=== PATIENT | male | born 1960 | race African-American/Black ===

== ENCOUNTER 2017-05-20 12:59 | Emergency (ER) | payer BC, OTHER ==
--- NOTE | 2017-05-20 13:29 | ER Document Report ---
ED Medical Screen (RME) - General Chief Complaint: Upper Abdominal Pain Stated Complaint: LEFT SIDE PAIN Time Seen by Provider: 05/20/17 13:27 Notes: Patient states for 3 days he has had left upper abdominal pain and left lower chest pain. He states certain movements cause a sharp pain to go into his chest and make it hard for him to breathe. He states he does not of any injuries. He states he had a similar pain several months ago and went to the [facility]. He states at that time they did an ultrasound and told him that he had "fluid around his kidney". He states follow-up for this finding is in the process of being arranged but he has not seen any regular doctors. He denies any problems with urination or blood in the urine. No nausea or vomiting. No problems with eating. No problems with stools. He denies any cough cold congestion. TRAVEL OUTSIDE OF THE [place] IN LAST 30 DAYS: No - Related Data Allergies/Adverse Reactions: No Known Allergies Allergy (Verified 05/20/17 13:12) Home Medications: Current Home Medications Amlodipine Besylate 10 mg PO DAILY 05/20/17 [History] Ascorbate Calcium [Vitamin C] 500 mg PO DAILY PRN 05/20/17 [History] Ferrous Sulfate 324 mg PO DAILY PRN 05/20/17 [History] Glipizide 10 mg PO DAILY 05/20/17 [History] Insulin Glargine,Hum.rec.anlog [Lantus] 23 unit SQ QHS 05/20/17 [History] Liraglutide [Victoza 2-Job] 0.5 mg SQ QHS 05/20/17 [History] Lisinopril/Hydrochlorothiazide [Lisinopril-Hctz 20-25 mg Tab] 1 each PO DAILY [History] Metformin HCl [Glucophage] 1,000 mg PO QHS 05/20/17 [History] Simvastatin 40 mg PO QHS 05/20/17 [History] Past Medical History - Social History Frequency of alcohol use: None Drug Abuse: None Renal/ Medical History: Denies: Hx Peritoneal Dialysis Physical Exam - Vital signs Vitals: Temp Pulse Resp BP Pulse Ox 98.0 F 78 24 H 144/79 H 96 05/20/17 13:05 05/20/17 13:05 05/20/17 13:05 05/20/17 13:05 05/20/17 13:05 Course - Vital Signs Vital signs: Temp Pulse Resp BP Pulse Ox 98.0 F 78 24 H 144/79 H 96 05/20/17 13:05 05/20/17 13:05 05/20/17 13:05 05/20/17 13:05 05/20/17 13:05
[2017-05-20 13:51] LABS: ABSOLUTE BASOPHILS # (AUTO) 0.1 10^3/uL (0.0-0.2); ABSOLUTE EOSINOPHILS # (AUTO) 0.2 10^3/uL (0.0-0.6); ABSOLUTE LYMPHOCYTES (AUTO) 1.4 10^3/uL (0.5-4.7); ABSOLUTE MONOCYTES (AUTO) 0.6 10^3/uL (0.1-1.4); ABSOLUTE NEUT (AUTO) 3.1 10^3/uL (1.7-8.2); BASOPHILS % (AUTO) 1.4 % (0-2); HEMATOCRIT 35.9 % (37.9-51.0); HEMOGLOBIN 11.3 g/dL (13.5-17.0); LYMPHOCYTES % (AUTO) 26.1 % (13-45); MEAN CORPUSCULAR HEMOGLOBIN 23.4 pg (27.0-33.4); MEAN CORPUSCULAR HGB CONC 31.6 g/dL (32.0-36.0); MEAN CORPUSCULAR VOLUME 74 fl (80-97); MONOCYTES % (AUTO) 11.9 % (3-13); RED BLOOD COUNT 4.85 10^6/uL (4.35-5.55); RED CELL DISTRIBUTION WIDTH 16.7 % (11.5-14.0); SEGMENTED NEUTROPHILS % (AUTO) 57.6 % (42-78); WHITE BLOOD COUNT 5.4 10^3/uL (4.0-10.5)
[2017-05-20 13:56] LABS: APPEARANCE,URINE CLEAR; BILIRUBIN,URINE NEGATIVE (NEGATIVE); GLUCOSE, URINE NEGATIVE (NEGATIVE); KETONES,URINE NEGATIVE (NEGATIVE); LEUKOCYTE ESTERASE,URINE NEGATIVE (NEGATIVE); NITRITE,URINE NEGATIVE (NEGATIVE); PROTEIN,URINE NEGATIVE (NEGATIVE); URINE SPECIFIC GRAVITY 1.014; UROBILINOGEN,URINE NEGATIVE mg/dL (<2.0)
--- NOTE | 2017-05-20 14:12 | RADIOLOGY REPORT (SQ) ---
EXAM DESCRIPTION: CHEST PA/LAT COMPLETED DATE/TIME: 05/20/2017 1:58 pm REASON FOR STUDY: left lat cp COMPARISON: None. EXAM PARAMETERS: NUMBER OF VIEWS: two views TECHNIQUE: Digital Frontal and Lateral radiographic views of the chest acquired. RADIATION DOSE: NA LIMITATIONS: none FINDINGS: LUNGS AND PLEURA: Subsegmental linear density medial right lung consistent with atelectasi s. No effusions. MEDIASTINUM AND HILAR STRUCTURES: No masses or contour abnormalities. HEART AND VASCULAR STRUCTURES: Heart normal size. No evidence for failure. BONES: No acute findings. HARDWARE: None in the chest. OTHER: No other significant finding. IMPRESSION: Atelectasis. TECHNICAL DOCUMENTATION: JOB ID: [id number] [employer]- All Rights Reserved
[2017-05-20 14:30] LABS: ALANINE AMINOTRANSFERASE 20 U/L (21-72); ALBUMIN 4.2 g/dL (3.5-5.0); ALKALINE PHOSPHATASE 96 U/L (38-126); ANION GAP 12 (5-19); ASPARTATE AMINO TRANSFERASE 15 U/L (17-59); BILIRUBIN,DIRECT 0.3 mg/dL (0.0-0.4); BILIRUBIN,TOTAL 0.4 mg/dL (0.2-1.3); BLOOD UREA NITROGEN 14 mg/dL (7-20); CARBON DIOXIDE 31 mmol/L (22-30); CHLORIDE 101 mmol/L (98-107); CREATININE RESULT 0.99 mg/dL (0.52-1.25); GLUCOSE 130 mg/dL (75-110); POTASSIUM 4.4 mmol/L (3.6-5.0); SODIUM 143.5 mmol/L (137-145); TOTAL PROTEIN 7.5 g/dL (6.3-8.2)
--- NOTE | 2017-05-20 14:46 | ER Document Report ---
ED General - General Chief Complaint: Upper Abdominal Pain Stated Complaint: LEFT SIDE PAIN Time Seen by Provider: 05/20/17 13:27 Notes: Patient is a 57-year-old male who presents with 3 days of left epigastric pain and left lateral abdominal pain that is worse when he moves. He is unsure if he pulled a muscle. He denies nausea, vomiting, hematuria, fevers, dysuria, diarrhea, constipation, rash, shortness of breath or cough. TRAVEL OUTSIDE OF THE [place] IN LAST 30 DAYS: No - Related Data Allergies/Adverse Reactions: No Known Allergies Allergy (Verified 05/20/17 13:12) Home Medications: Current Home Medications Amlodipine Besylate 10 mg PO DAILY 05/20/17 [History] Ascorbate Calcium [Vitamin C] 500 mg PO DAILY PRN 05/20/17 [History] Ferrous Sulfate 324 mg PO DAILY PRN 05/20/17 [History] Glipizide 10 mg PO DAILY 05/20/17 [History] Insulin Glargine,Hum.rec.anlog [Lantus] 23 unit SQ QHS 05/20/17 [History] Liraglutide [Victoza 2-Job] 0.5 mg SQ QHS 05/20/17 [History] Lisinopril/Hydrochlorothiazide [Lisinopril-Hctz 20-25 mg Tab] 1 each PO DAILY [History] Metformin HCl [Glucophage] 1,000 mg PO QHS 05/20/17 [History] Simvastatin 40 mg PO QHS 05/20/17 [History] Past Medical History - General Information source: Patient - Social History Smoking Status: Never Smoker Frequency of alcohol use: None Drug Abuse: None Family History: Reviewed & Not Pertinent Patient has suicidal ideation: No Patient has homicidal ideation: No Renal/ Medical History: Denies: Hx Peritoneal Dialysis Review of Systems - Review of Systems Notes: REVIEW OF SYSTEMS: CONSTITUTIONAL: -fevers, -chills EENT: -eye pain, -difficulty swallowing, -nasal congestion CARDIOVASCULAR:-chest pain, -syncope. RESPIRATORY: -cough, -SOB GASTROINTESTINAL: +epigastric abdominal pain, -nausea, -vomiting, -diarrhea GENITOURINARY: -dysuria, -hematuria MUSCULOSKELETAL: -back pain, -neck pain SKIN: -rash or skin lesions. HEMATOLOGIC: -easy bruising or bleeding. LYMPHATIC: -swollen, enlarged glands. NEUROLOGICAL: -altered mental status or loss of consciousness, -headache, - neurologic symptoms PSYCHIATRIC: -anxiety, -depression. ALL OTHER SYSTEMS REVIEWED AND NEGATIVE. Physical Exam - Vital signs Vitals: Temp Pulse Resp BP Pulse Ox 98.0 F 78 24 H 144/79 H 96 05/20/17 13:05 05/20/17 13:05 05/20/17 13:05 05/20/17 13:05 05/20/17 13:05 - Notes Notes: PHYSICAL EXAMINATION: GENERAL: Well-appearing, well-nourished and in no acute distress. HEAD: Atraumatic, normocephalic. EYES: Pupils equal round and reactive to light, extraocular movements intact, sclera anicteric, conjunctiva are normal. ENT: nares patent, oropharynx clear without exudates. Moist mucous membranes. NECK: Normal range of motion, supple without lymphadenopathy LUNGS: Breath sounds clear to auscultation bilaterally and equal. No wheezes rales or rhonchi. HEART: Regular rate and rhythm without murmurs ABDOMEN: Soft, mild epigastric and left lateral abdominal wall tenderness, normoactive bowel sounds. No guarding, no rebound. No masses appreciated. EXTREMITIES: Normal range of motion, no pitting or edema. No cyanosis. NEUROLOGICAL: Cranial nerves grossly intact. Normal speech, normal gait. Normal sensory and motor exams. PSYCH: Normal mood, normal affect. SKIN: Warm, Dry, normal turgor, no rashes or lesions noted. Course - Re-evaluation Re-evalutation: Patient appears very well. His labs are unremarkable and he has no signs of pyelonephritis or ACS. Patient says that his pain is only when he flexes his abdomen to the left. This is most likely suggestive of a musculoskeletal injury. No GI symptoms at this time. Instructed patient to continue anti- inflammatories, heating pad and following up with primary care physician. - Vital Signs Vital signs: Temp Pulse Resp BP Pulse Ox 98.0 F 78 24 H 144/79 H 96 05/20/17 13:05 05/20/17 13:05 05/20/17 13:05 05/20/17 13:05 05/20/17 13:05 - Laboratory Result Diagrams: 05/20/17 13:35 05/20/17 13:35 Laboratory results interpreted by me: 05/20/17 05/20/17 13:35 13:35 Hgb 11.3 L Hct 35.9 L MCV 74 L MCH 23.4 L MCHC 31.6 L RDW 16.7 H Carbon Dioxide 31 H Glucose 130 H AST 15 L ALT 20 L - Diagnostic Test Radiology reviewed: Image reviewed, Reports reviewed Radiology results interpreted by me: CXR: atelectasis Discharge - Discharge Clinical Impression: Abdominal wall pain Abdominal pain Qualifiers: Abdominal location: left upper quadrant Qualified Code(s): R10.12 - Left upper quadrant pain Condition: Good Disposition: HOME, SELF-CARE Additional Instructions: Your blood work, chest x-ray and urine does not show any concerning abnormalities. You must follow-up with your primary care physician for further evaluation and treatment. Take Motrin with food and use heating pads to help out with pain. Return to the ER if you have worsening pain or any other concerns. SPRAIN: Your injury may be a sprain. A sprain results from stretching or tearing of the ligaments, usually from a twisting injury. The ligaments will require time and protection in order to heal properly. Many sprains are quite disabling and should be taken seriously. The usual initial treatment of sprains is cold packs, elevation, and rest of the injured area. Your physician has assessed the seriousness of your ligament injury, and has outlined a treatment plan. Understand that this treatment may change, depending on how you progress. If a re-examination was recommended, it is important that you follow up as instructed. Call the doctor any time if there is severe pain, numbness, or loss of function in the injured area. USE OF BFHA-SNA-GKCGTFA IBUPROFEN: Ibuprofen (Advil, Nuprin, Medipren, Motrin IB) is a medication for fever and pain control. In addition, it has anti- inflammatory effects which may be beneficial, especially in the treatment of injuries. It's best to take ibuprofen with food. Persons with ulcer disease or allergy to aspirin should notify their physician of this before taking ibuprofen. Ibuprofen can be given every four to six hours, for a total of four doses daily. Age Pain or fever dose Antiinflammatory dose 6-8 yr 200 mg (1 tab) 200 mg (1 tab) 9-11 yr 200 mg (1 tab) 200-400 mg (1-2 tab) 11-14 yr 200-400 mg (1-2 tab) 400 mg (2 tab) 15-adult 400 mg (2 tab) 600 mg (3 tab) FOLLOW-UP CARE: If you have been referred to a physician for follow-up care, call the physician s office for an appointment as you were instructed or within the next two days. If you experience worsening or a significant change in your symptoms, notify the physician immediately or return to the Emergency Department at any time for re-evaluation. Forms: Elevated Blood Pressure
[2017-05-20 15:27] VITALS: BP 139/73
== END 2017-05-20 15:27 | disposition home or self-care (01) ==
LOC: ER 12:59
DX: R10.12 Left upper quadrant pain (principal); R10.13 Epigastric pain; Z79.899 Other long term (current) drug therapy
CPT/HCPCS: 36415; 71020; 80053; 81001; 84484; 85025; 99284